=== PATIENT | female | born 1955 | race Caucasian/White ===

== ENCOUNTER 2017-06-27 06:34 | Day surgery (SDC) | payer OTHER ==
[2017-06-27] MEDS ORDERED: Lactated Ringers 1,000 ML IV SCH (07:00)
[2017-06-27] MEDS ORDERED: Propofol 200 MG/20 ML SDV ONE (07:20)
[2017-06-27] MEDS ORDERED: Midazolam 1 MG/ML 2 ML SDV ONE (07:20)
[2017-06-27] MEDS ORDERED: fentaNYL 100 MCG/2 ML SDV ONE (07:20)
[2017-06-27 09:34] VITALS: BP 134/79
--- NOTE | 2017-06-27 10:42 | OR ---
DATE OF PROCEDURE: 06/27/2017 PROCEDURE: Colonoscopy. FINDINGS: Diverticulosis, mild. PREOPERATIVE DIAGNOSIS: Screening colonoscopy. POSTOPERATIVE DIAGNOSIS: Screening colonoscopy. RISKS: Risks, benefits, alternatives, and limitations including, but not limited to infection, bleeding, and perforation were explained to the patient, who wished to proceed. PROCEDURE IN DETAIL: The patient was placed in left lateral decubitus position. Digital rectal exam was performed without abnormality. The scope was introduced and advanced atraumatically to the ileocecal valve. The scope was brought back through the ascending, transverse, descending colon, and retroflexed. The patient had diverticulosis, which would be described as mild, limited to sigmoid colon only. There were no polyps. No old or new blood. No masses. The patient tolerated the procedure well. Santiago Ceballos MD /[id number]
== END 2017-06-27 09:30 | disposition home or self-care (01) ==
LOC: JP.SDS 06:34
PROVIDERS: ATTEND Surgery
DX: Z12.11 Encounter for screening for malignant neoplasm of colon (principal); K57.30 Diverticulosis of large intestine without perforation or abscess without bleeding; F32.9 Major depressive disorder, single episode, unspecified; Z88.8 Allergy status to other drugs, medicaments and biological substances; Z91.018 Allergy to other foods
CPT/HCPCS: J2250; J2704; J3010; J7120